=== PATIENT | female | born 2005 | race Caucasian/White ===

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

== ENCOUNTER 2023-01-02 08:04 | Inpatient (IN) | payer MEDICAID ==
[2023-01-02] MEDS ORDERED: TRANEXAMIC ACID IN NACL 1,000 MG/100 ML BAG IV PRN (09:49)
[2023-01-02] MEDS ORDERED: miSOPROStoL 200 MCG TABLET BC PRN (09:49)
[2023-01-02] MEDS ORDERED: CARBOPROST TROMETHAMINE 250 MCG/ML AMP IM PRN (09:49)
[2023-01-02] MEDS ORDERED: miSOPROStoL 200 MCG TABLET PR PRN (09:49)
[2023-01-02] MEDS ORDERED: fentaNYL 100 MCG/2 ML VIAL IVP PRN (09:49)
[2023-01-02] MEDS ORDERED: OXYTOCIN/SODIUM CHLORIDE 500 ML IV PRN (09:49)
[2023-01-02] MEDS ORDERED: OXYTOCIN 10 UNIT/ML VIAL IM PRN (09:49)
[2023-01-02] MEDS ORDERED: SODIUM CHLORIDE FLUSH 0.9% 10 ML SYRINGE IVP PRN (09:49)
[2023-01-02] MEDS ORDERED: hydrALAZINE INJ 20 MG/ML VIAL IVP PRN ×2 (09:49)
[2023-01-02] MEDS ORDERED: TERBUTALINE 1 MG/ML VIAL SUBQ PRN (09:49)
[2023-01-02] MEDS ORDERED: NIFEdipine 10 MG CAPSULE PO PRN (09:49)
[2023-01-02] MEDS ORDERED: LABETALOL 20 MG/4 ML SYRINGE IVP PRN ×3 (09:49)
[2023-01-02] MEDS ORDERED: METHYLERGONOVINE 0.2 MG/ML VIAL IM PRN (09:49)
[2023-01-02] MEDS ORDERED: LACTATED RINGERS 1,000 ML IV PRN (09:49)
[2023-01-02] MEDS ORDERED: lidocaine 1% 20 ML MDV ID PRN (09:49)
[2023-01-02] MEDS ORDERED: LACTATED RINGERS 1,000 ML IV SCH ×2 (10:00→23:00)
[2023-01-02 10:07] LABS: BASOPHILS % (AUTO) 0.3 %; EOSINOPHILS # (AUTO) 0.1 10^3/uL (0.0-0.7); HGB - HEMOGLOBIN 10.3 g/dL (12.0-16.0); LYMPHOCYTES # (AUTO) 1.4 10^3/uL (1.5-3.5); LYMPHOCYTES % (AUTO) 23.4 %; MEAN CORPUSCULAR HEMOGLOBIN 25.2 pg (27.0-31.0); MEAN CORPUSCULAR HGB CONC 31.2 g/dL (32.0-36.0); MEAN CORPUSCULAR VOLUME 80.9 fL (81.0-99.0); MEAN PLATELET VOLUME 10.4 fL (7.9-10.8); MONOCYTES # (AUTO) 0.3 10^3/uL (0.0-1.0); MONOCYTES % (AUTO) 4.2 %; NEUTROPHILS # (AUTO) 4.1 10^3/uL (1.5-6.6); NEUTROPHILS % (AUTO) 70.4 %; PLT - PLATELET COUNT 241 10^3/uL (130-450); RED BLOOD COUNT 4.08 10^6/uL (4.20-5.40); RED CELL DISTRIBUTION WIDTH 14.5 % (12.0-15.0); WHITE BLOOD COUNT 5.9 x10^3/uL (4.8-10.8)
[2023-01-02] MEDS: miSOPROStoL 100 MCG TABLET BC SCH ×4 (10:27→22:40)
[2023-01-02] MEDS: SODIUM CHLORIDE FLUSH 0.9% 10 ML SYRINGE IVP SCH ×2 (10:28→18:39)
--- NOTE | 2023-01-02 12:04 | HISTORY & PHYSICAL EXAMINATION ---
Admit History - Visit Reason Visit Reason: Other (scheduled IOL) - : 2 Parity: 1 Premature: 0 Ectopic: 0 : 0 Care: positive: [facility] Risk/History: positive: Gestational diabetes, Other (h/o shoulder distocia - that baby was 3900g, this EFW on U/S 3100g, so even with 20% error -- still < 3900. precautions and recommendations for repeat C/S discussed in detail. pt prefers the risk of over 1LTCS - even though her first child had Erbs Palsy 2'2 SD - mom reports "it resolved") Complications This : positive: Gestational diabetes Smoking Status: Never smoker - Mother's Labs Mother's Blood Type: positive: O Mother's RH: positive: Positive GBS: positive: Group B Step Negative Rubella Status: positive: Immune - Other Maternal History Other Maternal History: LMP: 05/01/2022 MARITO by LMP:02/05/2023 Initial U/S: 07/31/2022 @ 16w6d NOT c/w LMP FINAL MARITO:01/09/2023 BY Hx:GDM,Chorio,Shoulder dystocia, VAVD GESTATIONAL DIABETES [ ] Dx 10/28 [ ] did not bring long today, have not seen sugars yet [ ] reports that PP 120-126, fasting 90-95 [ ] last was diet only per patient: non compliance. [ ] will need NSTs from 34w. Ordered and scheduled last visit [ ] and growth sono ordered. H/O SHOULDER DYSTOCIA - 13yo 3990g WITH ERBs PALSY (that got better). [ ] pt was 13yo, ht: 60" [ ] per pt: poorly controlled DM, "didn't take care of myself" and "I'm doing better" [ ] delivery note: VAVD, Chrissy, suprapubic, 40 seconds [ ] per MD from delivery: is NOT recommended [ ] discussed this, pts height still 60" pt reports she "will obviously do what's right for the baby" and crying about a C/S. Plans for more children, and doesn't want a C/S. [place] unheard throughout last and that the doctor "just wanted her to have a C/S in the first place." discussed in team meeting, EFW of this baby is 3100, and IOL at 39w in attempt to offer harm-reduction in light of pt refusing CS. O+/ Abneg/RI / RPRNR / HepBneg/HIVneg Antibody Neg CBC: PLT 178 HCT 37.6 HGB 12.0 VZV: Imm HepC: PAP: Not of age GC/CT: 07/13- Negative HSV:Denies self and partner Genetic testing:AFP 07/31/22- Negative. Horizon test- Neg CF- Neg Fragile X- Neg DMD- Neg SMA-Neg Covid:Pfizer X2 2020 Flu:given 11/13/22 FAS: Placenta:Anterior w/o previa Cord:3VC MIKAEL:normal EFW:851g 42nd%ile 50gm OGCT: Early glucola: 08/13/22- 165 08/17/22 A1c- 5.0 3HR GTT: 101, 214, 123, 145 TDAP:10/15 Breast Pump:10/15 GBS: negative Delivery plan: per above - care with labor curve, no VAVD Contraception: Nexplanon - has had before and was satisfied Plans to breastfeed. Denies: F/C/N/V/CP/SOB Denies: dizziness, weakness, lightheadedness, difficulty with ambulation, palpi tations Denies: LITTLE / visual changes VSS NAD Conjunctiva pink, pale sclera +S1, S2, CTAB, no increased work of breathing Abd soft, NT, ND, visibly gravid at term [place]: cephalic 7#8 in clinic on Wed EFM: 130mod kelsey + A cells no D cells, reactive [place]: Q10 Cx: deferred Ext: neg CCE - HPI Current EDU 01/09/23 Gestation 39 Weeks and 0 Days 2 Vital Signs Temperature 98.6 F 01/02/23 08:48 Temperature 98.6 F 01/02/23 08:48 Heart Rate Respiratory Rate Blood Pressure O2 Saturation If not protocol: Oxygen Flow, liters/minute Meds/Allgy - Home Medications Home Medications: Ambulatory Orders Medication Instructions Recorded Confirmed Cefpodoxime Proxetil [Vantin] 100 mg PO Q12H #14 tablet 04/06/22 Phenazopyridine HCl [Pyridium] 200 mg PO TID PRN #6 tablet 04/06/22 - Allergies Allergies/Adverse Reactions: Allergies Allergy/AdvReac Type Severity Reaction Status Date / Time No Known Drug Allergies Allergy Verified 04/06/22 10:34 Physical - Abdominal Exam Vital Signs: Temp Pulse Resp BP Pulse Ox O2 Flow Rate 98.6 F 01/02/23 08:48 Plan for Labor - Plan For Labor I expect patient to be DC'd or transferred within 96 hours.: Yes Plan for Labor: IOL -- on miso 25mcg Q4h -- switch to pit when indicated FWB -- cat 1, cEFM GDMA1 -- BS Q4, until active labor then Q1 h/o SD after VAVD, baby 3900g, -- all notes reviewed -- discussed case with current care team -- will follow carefully -- team aware -- pt declines C/S at this point -- continue with IOL
--- NOTE | 2023-01-02 22:28 | PROVIDER PROGRESS NOTE ---
Labor Progress Note - Uterine Monitoring Uterine Monitoring Mode: positive: External toco Contraction Frequency (min/apart): Q4 Contraction Intensity: positive: Mild Uterine Resting Tone: positive: Soft - Monitoring Monitor Mode: positive: External ultrasound Heart Rate Baseline: 145 Heart Rate Variability: positive: Moderate (6-25 bmp) Accelerations: positive: Present, 15x15 Decelerations: positive: Late, Variable, Recurrent (>50% x20 min) Strip Review: positive: Category II - Vaginal Exam Dilation (in cm): 3 Effacement (%): 50 Station: -3 Cervical Position: Posterior - Labor Progress Note Labor Progress Note/Additional Text: Came to see patient for recurrent lates noted on EFM starting at 8pm. Question if variable or lates initially -- and with time became apparent they are lates. We did intrauterine rescussitative measures - IV fluid, position changes, and O2 x 15 minutes. This helped the baby recover to a category I tracing. last miso was 1830, her 3rd dose. at 2230, pending reassuring status continues, we will start pitocin. pt aware and ammenable to this plan.
[2023-01-02] MEDS ORDERED: OXYTOCIN/SODIUM CHLORIDE 500 ML IV SCH (23:00)
[2023-01-03] MEDS ORDERED: LIDOCAINE 2%-EPI 1:100000 20 ML MDV ONE (01:22)
[2023-01-03] MEDS ORDERED: ROPIVACAINE 0.2% 200 MG/100 ML BAG EP ONE (01:23)
[2023-01-03] MEDS ORDERED: ROPIVACAINE 0.2% 200 MG/100 ML BAG EP PRN (02:01)
[2023-01-03] MEDS ORDERED: NALBUPHINE 10 MG/ML AMP IVP PRN (02:01)
[2023-01-03] MEDS ORDERED: NALOXONE 0.4 MG/ML VIAL IVP PRN (02:01)
[2023-01-03] MEDS ORDERED: diphenhydrAMINE INJ 50 MG/ML VIAL IVP PRN (02:01)
[2023-01-03] MEDS ORDERED: ONDANSETRON 4 MG/2 ML VIAL IVP PRN ×2 (02:01→03:58)
[2023-01-03] MEDS ORDERED: METOCLOPRAMIDE 10 MG/2 ML VIAL IVP PRN (02:01)
[2023-01-03] MEDS ORDERED: ePHEDrine 50 MG/ML VIAL IVP PRN (02:01)
--- NOTE | 2023-01-03 02:07 | ANESTHESIA ---
Pre-Anesthesia VS, & Labs - Diagnosis labor induction - Procedure labor epidural Vital Signs: Temp Pulse Resp BP Pulse Ox O2 Flow Rate 37 C 73 16 115/79 100 01/02/23 08:48 01/02/23 16:10 01/02/23 16:10 01/02/23 16:10 01/02/23 16:10 Height: 5 ft Weight (kg): 74.208 kg Body Mass Index: 31.9 BMI Classification: Obese - NPO Other (clears) - Is Patient ?: Yes - Lab Results Current Lab Results: Laboratory Tests 01/03/23 01:41 PST: POC Whole Bld Glucose 87 01/03/23 00:44: POC Whole Bld Glucose 94 01/02/23 20:02: POC Whole Bld Glucose 140 H 01/02/23 16:08: POC Whole Bld Glucose 117 H 01/02/23 09:00: WBC 5.9, RBC 4.08 L, Hgb 10.3 L, Hct 33.0 L, MCV 80.9 L, MCH 25.2 L, MCHC 31.2 L, RDW 14.5, Plt Count 241, MPV 10.4, Neut # (Auto) 4.1, Lymph # (Auto) 1.4 L, [place] # (Auto) 0.3, Eos # (Auto) 0.1, Baso # (Auto) 0.0, Absolute Nucleated RBC 0.00, Nucleated RBC % 0.0 01/02/23 09:00: Blood Type O POSITIVE, Antibody Screen NEGATIVE Fish Bones: 01/02/23 09:00 Home Medications and Allergies Active Medications Carboprost Tromethamine (Carboprost Tromethamine 250 Mcg/Ml Amp) 250 mcg IM .ONCE PRN PRN Reason: Hemorrhage Fentanyl (Fentanyl 100 Mcg/2 Ml Vial) 50 mcg IVP Q1H PRN PRN Reason: Severe Pain (score 7-10) Hydralazine HCl (Hydralazine Inj 20 Mg/Ml Vial) 5 - 10 mg IVP Q20M PRN; Protocol PRN Reason: SBP> or= 160 OR DBP> or= 110 Hydralazine HCl (Hydralazine Inj 20 Mg/Ml Vial) 10 mg IVP .ONCE PRN; Protocol PRN Reason: SBP> or= 160 OR DBP> or= 110 Lactated Ringer's (Lr) 500 mls @ 999 mls/hr IV PRN PRN PRN Reason: NEEDED PER PROVIDER ORDERS Last Infusion: 01/02/23 21:44 Dose: Infused Oxytocin/Sodium Chloride (Pitocin/Sodium Chloride) 500 mls @ 999 mls/hr IV PRN PRN; Protocol PRN Reason: POST- HEMORR PREVENTION Tranexamic Acid (Tranexamic 1,000 Mg/100ml-Nacl) 1,000 mg in 100 mls @ 600 mls/hr IV Q30M PRN PRN Reason: EBL >1200mL and within 3hr Lactated Ringer's (Lr) 1,000 mls @ 75 mls/hr IV .[id number] JAMA Lactated Ringer's (Lr) 1,000 mls @ 125 mls/hr IV .Q8H JAMA Last Admin: 01/02/23 21:12 Dose: 125 mls/hr Oxytocin/Sodium Chloride (Pitocin/Sodium Chloride) 500 mls @ 1 mls/hr IV TITR JAMA; Protocol Last Titration: 01/03/23 00:16 Dose: 2 milliunit/min, 2 mls/hr Labetalol HCl (Labetalol 20 Mg/4 Ml Syringe) 20 - 80 mg IVP Q10M PRN; Protocol PRN Reason: SBP> or= 160 OR DBP> or= 110 Labetalol HCl (Labetalol 20 Mg/4 Ml Syringe) 20 mg IVP .ONCE PRN; Protocol PRN Reason: SBP> or= 160 OR DBP> or= 110 Labetalol HCl (Labetalol 20 Mg/4 Ml Syringe) 20 - 40 mg IVP Q10M PRN; Protocol PRN Reason: SBP> or= 160 OR DBP> or= 110 Lidocaine HCl (Lidocaine 1% 20 Ml Mdv) 20 ml ID .ONCE PRN PRN Reason: PERINEAL REPAIR Stop: 01/05/23 09:50 Methylergonovine Maleate (Methylergonovine 0.2 Mg/Ml Vial) 0.2 mg IM .ONCE PRN PRN Reason: Hemorrhage Misoprostol (Misoprostol 200 Mcg Tablet) 600 mcg BC .ONCE PRN PRN Reason: Hemorrhage Misoprostol (Misoprostol 200 Mcg Tablet) 800 mcg DE .ONCE PRN PRN Reason: Hemorrhage Misoprostol (Misoprostol 100 Mcg Tablet) 25 mcg BC Q4H JAMA Last Admin: 01/02/23 22:40 Dose: Not Given Nifedipine (Nifedipine 10 Mg Capsule) 10 - 20 mg PO Q20M PRN; Protocol PRN Reason: SBP> or= 160 OR DBP> or= 110 Oxytocin (Oxytocin 10 Unit/Ml Vial) 10 unit IM .ONCE PRN PRN Reason: Step One if no IV access. Sodium Chloride (Sodium Chloride Flush 0.9% 10 Ml Syringe) 10 ml IVP PRN PRN PRN Reason: NEEDED PER PROVIDER ORDERS Last Admin: 01/02/23 10:28 Dose: 10 ml Sodium Chloride (Sodium Chloride Flush 0.9% 10 Ml Syringe) 10 ml IVP Q8H [facility] Last Admin: 01/02/23 18:39 Dose: 10 ml Terbutaline Sulfate (Terbutaline 1 Mg/Ml Vial) 0.25 mg SUBQ .ONCE PRN PRN Reason: Tachystole Allergies/Adverse Reactions: Allergies Allergy/AdvReac Type Severity Reaction Status Date / Time No Known Drug Allergies Allergy Verified 04/06/22 10:34 Anes History & Medical History - Anesthetic History Anesthesia Complications: reports: No previous complications - Medical History Cardiovascular: reports: None Pulmonary: reports: None Gastrointestinal: reports: None Urinary: reports: None Neuro: reports: None Musculoskeletal: reports: None Endocrine/Autoimmune: reports: None Blood Disorders: reports: Anemia Skin: reports: None Smoking Status: Never smoker - Obstetrical History : 2 Parity: 1 Events: reports: Gestational diabetes, Other (h/o shoulder distocia - that baby was 3900g, this EFW on U/S 3100g, so even with 20% error -- still < 3900. precautions and recommendations for repeat C/S discussed in detail. pt prefers the risk of over 1LTCS - even though her first child had Erbs Palsy 2'2 SD - mom reports "it resolved") Complications: reports: Gestational diabetes Exam General: Alert, Oriented x3 Dental: WNL Mouth Opening: Greater than 4 Fingerbreadths Neck Mobility: Normal Mallampati classification: II Thyromental Distance: greater than 6 cm Respiratory: Lungs clear Cardiovascular: Regular rate Plan Anesthesia Type: Epidural Consent for Procedure(s) Verified and Reviewed: Yes Code Status: Attempt Resuscitation ASA classification: 2-Mild systemic disease Is this case an emergency?: No
--- NOTE | 2023-01-03 03:37 | DELIVERY NOTE ---
Delivery Note - Labor Labor: positive: Induced by oxytocin - Infant Delivery Method Delivery Method: positive: Spontaneous vaginal delivery - Cervical Ripening Method Cervical Ripening Method: positive: Misoprostil, Oxytocin - Presentation Presentation: positive: Vertex, ROT - right occiput transverse - Nuchal Cord Nuchal Cord: positive: Present (tight, could not reduce, delivered with, and true knot in cord) - Anesthetic Anesthetic Type: - Amniotic Fluid Description Amniotic Fluid Description: positive: Light meconium, Other (terminal mec) - Episiotomy Type Episiotomy Type: positive: None - Laceration Laceration: positive: None - Delivery Outcome Delivery Outcome: positive: Livebirth - [place]: positive: Stimulated, Warmed, [place] used, Other (see nursing note) [place] sex: positive: Male - Cord Cord: positive: 3 vessels, True knot - Placenta Placenta: positive: Intact, Spontaneous, Abnormal, Other (felt warm, cultured, also appeared blanched / more fibrinous - sent to pathology) - Estimated Blood Loss Estimated Blood Loss (in cc): 250 - Post Delivery Events Post Delivery Events: positive: Shoulder dystocia (Baby ROT, L shoulder anterior, pt in carmen position, suprapubic pressure applied from the maternal R --> L, anterior shoulder delivered.) - Delivery Comments (Free Text/Narrative) Delivery Comments (Free Text/Narrative): On 03 Jan 2023 at 0306 patient delivered a viable male infant over intact perineum under epidural analgesia. Patient began pushing at 0236, was placed in carmen position once baby was , and head delivered at 0305, baby restituted ROT, tight nuchal cord that could not be reduced, and with coordinated pushing and suprapubic pressure body delivered at 0306. baby with moderate mec in fluid and terminal mec at delivery. Baby floppy, cord clamped and cut x2, baby taken to warmer for resuccitative efforts. Apgars 4/8. cord gasses sent. True knot in cord. placenta delivered spontaneously at 0310, inspected, found to be intact with 3VC, sent to pathology as it appeared blanched. Fundus firm with IV pitocin, perineum inspected, no lacerations. EBL 250. All counts correct. Both mom and baby recovering well. stage I: 1h 39m Stage II: 1h 19m Stage III: 4m Note: this labored occurred over the daylight savings time change.
[2023-01-03] MEDS ORDERED: ONDANSETRON ODT 4 MG TABLET TL PRN (03:58)
[2023-01-03] MEDS ORDERED: LACTATED RINGERS 1,000 ML IV PRN (03:58)
[2023-01-03] MEDS ORDERED: WITCH HAZEL/GLYCERIN 1 PAD TOP PRN (03:58)
[2023-01-03] MEDS: ACETAMINOPHEN 325 MG TABLET PO PRN ×4 (04:21→21:28)
[2023-01-03] MEDS: IBUPROFEN 600 MG TABLET PO PRN ×3 (04:22→17:34)
[2023-01-03] MEDS: DOCUSATE SODIUM 100 MG CAPSULE PO SCH ×3 (09:55→21:30)
[2023-01-03 22:01] VITALS: O2SAT 100
[2023-01-04] MEDS: SODIUM CHLORIDE FLUSH 0.9% 10 ML SYRINGE IVP SCH ×2 (08:12→08:13)
--- NOTE | 2023-01-04 10:01 | PROVIDER PROGRESS NOTE ---
Subjective - Subjective Subjective: Subjective Patient reports she is doing well. Lochia appropriate. Denies heavy bleeding. Ambulating. Pelvic and abdominal pain well-controlled. Tolerating oral intake. Diet: Regular. Voiding without difficulty. Passing flatus. Denies BM. Patient is bonding with baby in room Breast-feeding starting slowly. Some nipple pain. Working with nursing to feed better. Some glucose issues. We will continue to monitor. Denies feeling lightheaded, dizzy or excessively fatigued. Objective General: Alert, oriented, no apparent distress. Cardiovascular: Regular rate. Regular rhythm. Lungs: No increased work of breathing. Abdomen: Uterus firm. Below umbilicus. No guarding or rebound. Extremities: No pain on palpation. No cords palpated. Distal pulses intact. Assessment and Plan day 1. -Routine care -Anticipate discharge tomorrow Objective - Vital Signs/Intake & Output Vital Signs: Vital Signs x48h Temp Pulse Resp BP 01/04/23 08:45 98.2 F 78 16 118/62 Intake & Output: Intake & Output 01/02/23 01/03/23 01/03/23 01/04/23 00:59 00:59 23:59 23:59 Intake Total Output Total Balance - Lab Results Fish Bones: 01/02/23 09:00 Other Labs: Lab Results x24hrs 01/04/23 Range/Units 05:48 POC Whole Bld Glucose 78 (70 - 100) mg/dL
[2023-01-04] MEDS: DOCUSATE SODIUM 100 MG CAPSULE PO SCH ×2 (15:05→18:17)
[2023-01-04] MEDS: ACETAMINOPHEN 325 MG TABLET PO PRN (18:17)
[2023-01-04] MEDS: IBUPROFEN 600 MG TABLET PO PRN (18:17)
--- NOTE | 2023-01-04 19:53 | PROVIDER PROGRESS NOTE ---
Subjective - Prog Note Date Prog Note Date: 01/04/23 Prog Note Time: 16:40 - Subjective Pt reports feeling: Improved Subjective: patient is doing well. breast and bottle feeding. not needing any pain meds. hopefully can discharge tomorrow. Objective - Vital Signs/Intake & Output Vital Signs: Vital Signs x48h Temp Pulse Resp BP Pulse Ox 01/04/23 18:12 98.4 F 16 126/45 L 100 01/04/23 13:11 98.1 F 76 20 108/57 L 100 Intake & Output: Intake & Output 01/02/23 01/03/23 01/03/23 01/04/23 00:59 00:59 23:59 23:59 Intake Total Output Total Balance - Lab Results Fish Bones: 01/02/23 09:00 Other Labs: Lab Results x24hrs 01/04/23 Range/Units 05:48 POC Whole Bld Glucose 78 (70 - 100) mg/dL Assessment/Plan - Problem List (1) Vaginal delivery Impression: doing well post . routine care. discharge tomorrow
[2023-01-05] MEDS: IBUPROFEN 600 MG TABLET PO PRN ×2 (00:23→07:30)
[2023-01-05 08:25] VITALS: BP 118/73
[2023-01-05] MEDS: DOCUSATE SODIUM 100 MG CAPSULE PO SCH (08:28)
--- NOTE | 2023-01-05 11:30 | DISCHARGE SUMMARY ---
"Discharge Summary Admit Date: 01/02/23 Discharge Date: 01/05/23 Discharging Provider: Kayla Moreno MD Code Status: Attempt Resuscitation Condition at Discharge: Good Discharge Disposition: 01 Home, Self Care - DIAGNOSES Admission Diagnoses: Induction of labor at 39 weeks. prior vag del with shoulder dystocia diet controlled gdm. Discharge Diagnoses with Status of Each Condition: same, delivered vaginally - HPI History of Present Illness: pateint is admitted for induction of labor. prior baby with shoulder dystocia and she declines c section. induced to increase chance for vag delivery. - CONSULTS | PROCEDURES Procedures: labor induction vaginal delivery - HOSPITAL COURSE Hospital Course: induction was done and was succesful. she had a vaginal delivery with epidural anesthesia. very mild short shoulder dystocia. no apparent sequella. discharging home on ppd #2 although baby staying another day for bili lights. Breast and bottle feeding. no pain. normal bleeding. - ALLERGIES Allergies/Adverse Reactions: Allergies Allergy/AdvReac Type Severity Reaction Status Date / Time No Known Drug Allergies Allergy Verified 04/06/22 10:34 - MEDICATIONS Home Medications: Ambulatory Orders Medication Instructions Recorded Confirmed Cefpodoxime Proxetil [Vantin] 100 mg PO Q12H #14 tablet 04/06/22 Phenazopyridine HCl [Pyridium] 200 mg PO TID PRN #6 tablet 04/06/22 - PHYSICAL EXAM AT DISCHARGE General Appearance: positive: No acute distress - LABS Result Diagrams: 01/02/23 09:00 - FOLLOW UP [facility]"
--- NOTE | 2023-01-05 11:57 | Labor Flowsheet ---
Labor Flowsheet Datetime Report Generated by CPN: 01/05/2023 11:57 Datetime: 01/05/2023 08:22 VITAL SIGNS NBP Sys/Joselin/Mean (mmHg): 118 : 73 : 82 Pulse: 73 Datetime: 01/03/2023 14:44 SpO2 (%): 97 Datetime: 01/03/2023 06:02 Temperature (C): 37.0 MEDICATIONS Pitocin (milliunits): Discontinued Datetime: 01/03/2023 05:00 Stage of : Datetime: 01/03/2023 03:21 Membranes Ruptured Date/Time: 01/03/2023 01:08 Datetime: 01/03/2023 03:05 LaborFlag: Labor Datetime: 01/03/2023 03:00 UTERINE ACTIVITY Monitor Mode: Palpation Frequency (min): 1.5-2 Quality: Strong Duration (sec): 50-90 Pattern: Tachysystole: > 5 Contractions in 10 Minutes Resting Tone (Palpate): Relaxed Pitocin Checklist: No More than 5 Uterine Contractions in 10 Minutes for any 20 Minute Interval; Ut erus Palpates Soft between Contractions ASSESSMENT A Monitor Mode: Telemetry FHR Baseline Rate : 130 Variability: Moderate 6-25 bpm Accelerations: None Decelerations: Late; Variable Actions for Decelerations: Provider Notified; Other Category: Category II Datetime: 01/03/2023 02:56 Pushing Progress: Caput Noted; Presenting Part Visible; Pushing Effectively with Contractions Datetime: 01/03/2023 02:48 Bedside Blood Glucose: 103 Datetime: 01/03/2023 02:36 STAGE 2 Pushing: Coached on Pushing Pushing Position: Pushing with Contractions Datetime: 01/03/2023 02:30 Contraction Comments: coupling of UC noted Datetime: 01/03/2023 02:12 PAIN Pain Scale: 4 Datetime: 01/03/2023 02:00 Provider Reviewed Strip: Yes Datetime: 01/03/2023 01:47 VAGINAL EXAM Dilatation (cm): 10.0 Effacement (%): 100 Station: 0 Exam by: H. Familia, RN Vaginal Bleeding: Scant Datetime: 01/03/2023 01:46 Pain Assessment Comments: requesting epidural Datetime: 01/03/2023 01:45 Monitor Interventions for UA: [place] Adjusted ANESTHESIA Epidural Procedure: Loading Dose Epidural Procedure Other: Pump Started Datetime: 01/03/2023 01:43 I/O Interventions: Up to BR Datetime: 01/03/2023 01:41 Patient Position/Activity: Right Tilt Datetime: 01/03/2023 01:28 Comments: FHT 137 Datetime: 01/03/2023 01:21 Cervix, Consistency: Soft Cervix, Position: Anterior Datetime: 01/03/2023 01:19 PROCEDURE TIME OUT Procedure Verify: Correct Patient Position Datetime: 01/03/2023 01:09 Patient Care Comments: replaced monitors, low byron Datetime: 01/03/2023 01:08 Membrane Status: Ruptured Membranes Rupture Method: Spontaneous Amniotic Fluid Color: Clear Amniotic Fluid Amount: Small Datetime: 01/02/2023 21:35 COMMUNICATION Communication: Provider at Bedside Provider Notified (Name): Dr. Elena Datetime: 01/02/2023 21:23 Notification Reason: Other Communication Comments: MD will be in to see patient in 1 minute Datetime: 01/02/2023 21:12 PATIENT CARE IV/Blood Work: IV Infusing per Order Datetime: 01/02/2023 20:55 Vaginal Exam Comments: very posterior Datetime: 01/02/2023 19:32 Pain Goal: 8 Pain Relief Measures: Comfort Measures Comfort Measures: Breathing/Relaxation; Family Support TEACHING Instructional Method: Verbal Plan of Care: Plan of Care Discussed; Induction Labor/Induction: Cervical Ripening Pain Management: Pain Scale/Goals; Comfort Measures Datetime: 01/02/2023 19:20 MATERNAL ASSESSMENT Level of Consciousness: Alert DTR's/Clonus: No Clonus Headache: Denies Breath Sounds, Left: Clear and Equal Breath Sounds, Right: Clear and Equal Nausea/Vomiting: Denies RUQ Epigastric Pain: Denies Datetime: 01/02/2023 19:00 Oxygen Method: Room Air Datetime: 01/02/2023 16:56 Pain Presence: Intermittent Pain Type: Contraction Pain Location: Abdomen Pain Coping: Breathing Through Contractions Datetime: 01/02/2023 14:37 Cervical Ripening Agents: Cytotec @ Datetime: 01/02/2023 10:11 Teaching Comments: Encouraged pt to increase PO fluids intake Datetime: 01/02/2023 09:40 Related: Activity and Rest
== END 2023-01-05 11:54 | disposition home or self-care (01) | DRG 807 ==
LOC: WFO 08:04 → FBP 08:38 → WFO 09:48 → FBP 09:49
PROVIDERS: ADMIT Obstetrics & Gynecology; ATTEND Obstetrics & Gynecology
PROC: 3E033VJ Introduction of Other Hormone into Peripheral Vein, Percutaneous Approach (ICD-10-PCS; principal; 2023-01-02)
PROC: 10E0XZZ Delivery of Products of Conception, External Approach (ICD-10-PCS; 2023-01-03)
DX: O24.420 Gestational diabetes mellitus in childbirth, diet controlled (principal); Z37.0 Single live birth; O66.0 Obstructed labor due to shoulder dystocia; O69.81X0 Labor and delivery complicated by cord around neck, without compression, not applicable or unspecified; O77.0 Labor and delivery complicated by meconium in amniotic fluid; Z3A.39 39 weeks gestation of pregnancy
CPT/HCPCS: 36415; 59409; 85025; 86850; 86900; 86901; A9270; J7120; 84443